=== PATIENT | male | born 1995 | race Caucasian/White ===

== ENCOUNTER 2020-03-17 00:36 | Emergency (ER) | payer OTHER, SELFPAY ==
[2020-03-17 00:47] VITALS: BP 107/77; PULSE 87; RESP 18; TEMP 36.7; O2SAT 99; BMI 26.6
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
--- NOTE | 2020-03-17 01:15 | XR_ITS ---
EXAMINATION: LEFT HAND 3 VIEWS CLINICAL INFORMATION: Left fourth and fifth digit pain. COMPARISON: None. TECHNIQUE: PA, lateral, oblique views of the left hand were obtained. FINDINGS: There are no fractures or dislocations. There is no significant soft tissue swelling. XR/XR hand LT min 3V IMPRESSION: Unremarkable left hand radiographs.
--- NOTE | 2020-03-17 01:19 | PC.NURSE ---
pt wound stapled, plan for right hand x ray then d.c
== END 2020-03-17 02:01 | disposition home or self-care (01) ==
PROVIDERS: Emergency Provider Emergency Medicine
DX: S01.01XA Laceration without foreign body of scalp, initial encounter (principal); S60.222A Contusion of left hand, initial encounter; M79.642 Pain in left hand; G44.309 Post-traumatic headache, unspecified, not intractable; Y04.2XXA Assault by strike against or bumped into by another person, initial encounter; Y93.9 Activity, unspecified; Y92.9 Unspecified place or not applicable; Y99.9 Unspecified external cause status
CPT/HCPCS: 12002; 73130; 99283; 99284

== ENCOUNTER 2020-03-28 18:02 | Emergency (ER) | payer OTHER, SELFPAY ==
[2020-03-28 18:16] VITALS: BP 133/75; PULSE 88; RESP 14; TEMP 36.6; O2SAT 99; BMI 23.3
--- NOTE | 2020-03-28 18:51 | ED_ITS ---
HPI - Wound/Laceration General Chief Complaint: Wound/Laceration Stated Complaint: Suture removal Time Seen by Provider: 03/28/20 18:31 Source: patient Mode of arrival: ambulatory History of Present Illness HPI narrative: 25-year-old male presenting to ED for staple removal from scalp s/p 12 christianne being placed on 03/17. Patient denies complaints since injury including drainage, fever, chills, headache, nausea/vomiting Onset (ago): day(s) Related Data Allergies Allergy/AdvReac Type Severity Reaction Status Date / Time No Known Allergies Allergy Verified 03/17/20 00:50 [No Known Allergies*] Review of Systems Review of Systems: Constitutional: No Weight loss, No Fever, No Chills ENT/Mouth: No Ear Pain, No Nasal Congestion, No Sinus Pain, No headache Gastrointestinal: No Nausea, No Vomiting Genitourinary:, No Dysuria, No Urinary Frequency, No Hematuria, No Urinary Incontinence Musculoskeletal: No joint pain, No Myalgias, No Joint Swelling Skin:+ Skin lac, No rash Neuro: No Weakness, No Numbness, No Paresthesias Yes all other systems are reviewed and are negative [facility] Past Medical History Attestation statement: The following information was validated with the patient. Source: old records reviewed Social History Social History Advance Directives: No Advance Directives Information Provided: Yes Physical Exam Vital Signs: Vital Signs: Last Vital Signs Temp 97.8 F 03/28/20 18:16 Pulse 88 03/28/20 18:16 Resp 14 03/28/20 18:16 BP 133/75 03/28/20 18:16 Pulse Ox 99 03/28/20 18:16 Body Mass Index 23.3 Const: General: cooperative and healthy appearing Orientation/consciousness: patient oriented x3 Limitations: no limitations HENMT: Head: Yes normal to inspection Ears: hearing grossly normal bilaterally General nose exam: Normal external nose present Face and sinus: Yes normal facial exam Eyes: General: appearance normal, both eyes and all related structures EOM: EOMs intact bilaterally Neck: Neck: Yes normal visual inspection Skin: Other: + healing laceration to with 12 christianne intact. No surrounding c ellulitis, no fluctuance or induration Neuro: General: patient oriented x3 Gait exam (Neuro): Normal gait present Extrem: General: Yes normal to inspection Procedures Procedure Narrative Procedure Narrative: Twelve chritsianne removed from back of scalp. No complications Discharge Plan Discharge Clinical Impression: Removal of staple Patient Disposition: Home, Self-Care Instructions: Staple Care (ED) Additional Instructions: Your christianne removed today in the ED You may apply bacitracin or Neosporin at home Do not excessively scribed area as it is still healing Keep an eye on it, if it begins to look infected, is red, there is drainage, you fever/headaches return to the ED Otherwise follow-up with her doctor Referrals: Physician,Unknown [Primary Care Provider] - 1 week
== END 2020-03-28 19:25 | disposition home or self-care (01) ==
PROVIDERS: Emergency Provider Emergency Medicine
DX: Z48.02 Encounter for removal of sutures (principal)
CPT/HCPCS: 99283

== ENCOUNTER 2020-04-03 20:50 | Emergency (ER) | payer OTHER, SELFPAY ==
[2020-04-03 21:15] VITALS: RESP 20
[2020-04-03 21:21] VITALS: RESP 20
[2020-04-03 21:23] VITALS: RESP 18
[2020-04-03 21:28] VITALS: RESP 18
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
[2020-04-03 22:08] VITALS: RESP 18
[2020-04-03] MEDS: HaloperidoL 5 MG TABLET PO (22:17)
[2020-04-03] MEDS: Acetaminophen 325 MG TABLET 650 MG PO (22:17)
[2020-04-03] MEDS: LORazepam 1 MG TABLET 2 MG PO (22:17)
--- NOTE | 2020-04-03 22:58 | PC.NURSE ---
Patient restrained released by provider, patient's needs to be changed, security are here for help, patient combative and resistive of change management specialist, refused to [facility], will continue to monitor.
--- NOTE | 2020-04-03 23:51 | MHC.CARE ---
CARE Team speaks with СЕРГЕЙ Greenberg. Pt physically restrained after arrival and was given Haldol and Ativan PO, pt now sleeping. Pt is not clinically appropriate to engage in assessment, and therefore will be seen by CARE Team i the morning.
[2020-04-04] VITALS (9 sets, daily range): BP systolic 110; BP diastolic 65; PULSE 58–95; RESP 16–24; TEMP 36.8; O2SAT 97
--- NOTE | 2020-04-04 00:05 | PC.NURSE ---
Patient in bed appears sleeping, no distress observed/reported, respiration +/=/non-labored bilaterally, will continue to monitor.
--- NOTE | 2020-04-04 03:21 | PC.NURSE ---
Patient in bed appears sleeping, no distress observed/reported, respiration +/=/non-labored bilaterally, will continue to monitor.
--- NOTE | 2020-04-04 07:23 | PC.NURSE ---
Report received from СЕРГЕЙ Greenberg. Pt resting, resp unlabored.
--- NOTE | 2020-04-04 09:49 | PC.NURSE ---
Pt resting, arousable w/ effort, opens eyes when called.
--- NOTE | 2020-04-04 11:41 | PC.NURSE ---
Pt accepted to go to ct- now returned.
[2020-04-04 12:05] LABS: MANUAL DIFF FLAG NO
[2020-04-04 12:06] LABS: Basophils Percent Auto 0.5 % (0-2); Eosinophils Absolute Auto 0.1 X10*3/uL (0.0-0.4); Eosinophils Percent Auto 1.2 % (0-4); Hematocrit 41.7 % (42-52); Hemoglobin 13.4 g/dl (14.0-18.0); Imm Gran Abs Auto 0.02 X10*3/uL (0.00-0.03); Imm Gran Pct Auto 0.3 % (0.0-0.4); Lymphocytes Absolute Auto 1.2 X10*3/uL (1.2-4.9); Lymphocytes Percent Auto 16.1 % (20-40); Mean Corpuscular HGB Conc 32.1 g/dl (31.0-36.0); Mean Corpuscular Volume 87.2 fL (80-98); Mean Platelet Volume 9.8 fL (9.4-12.4); Monocytes Absolute Auto 0.6 X10*3/uL (0.1-1.2); Neutrophils Absolute Auto 5.6 X10*3/uL (2.0-8.3); Neutrophils Percent Auto 73.9 % (45-73); Platelet Count 330 X10*3/uL (160-400); Red Blood Count 4.78 X10*6/uL (4.60-5.80); White Blood Count 7.6 X10*3/uL (4.8-10.8)
[2020-04-04 12:26] LABS: Ethanol < 10 mg/dL
[2020-04-04 12:37] LABS: Alanine Aminotransferase 13 U/L (0-40); Albumin Level 4.6 g/dL (3.5-5.0); Alkaline Phosphatase 79 U/L (39-117); Anion Gap 13 (12-20); Aspartate Amino Transferase 23 U/L (5-37); Bilirubin Total 0.8 mg/dL (0.0-1.0); Blood Urea Nitrogen 11 mg/dL (9-16); Calcium 9.3 mg/dL (8.4-10.2); Carbon Dioxide 29 mmol/L (22-29); Chloride 100 mmol/L (96-108); Estimated Glomerular Filt Rate > 60; Glucose Random 81 mg/dL (60-115); Potassium 4.5 mmol/l (3.3-5.1); Salicylate < 5.0 mg/dL (15-30); Sodium 137 mmol/L (135-145); Total Protein 7.5 g/dL (6.5-8.0)
[2020-04-04 12:39] LABS: Amphetamine Screen Urine Not Detected (Not Detect); Barbiturates, Urine Not Detected (Not Detect); Benzodiazepines Screen Urine Not Detected (Not Detect); Cannabinoid Screen Urine POSITIVE (Not Detect); Cocaine Screen Urine Not Detected (Not Detect); Opiate Screen Urine Not Detected (Not Detect); Phencyclidine Screen Urine Not Detected (Not Detect)
--- NOTE | 2020-04-04 12:45 | PC.NURSE ---
Late entry: Per care team, pt is to be assessed by N. Fax sent to [facility] w/ receipt received, but when N called, no fax had been received. Fax re-sent.
[2020-04-04 12:48] LABS: Acetaminophen LAB < 1 mcg/mL (<30)
--- NOTE | 2020-04-04 13:18 | PC.NURSE ---
Pt resting, resp unlabored.
--- NOTE | 2020-04-04 14:31 | PC.NURSE ---
BHN in to evaluate
--- NOTE | 2020-04-04 17:48 | PC.NURSE ---
Pt resting in room, awake, resp unlabored.
--- NOTE | 2020-04-04 18:10 | PC.NURSE ---
Pt declined to have vitals completed, also declined supper. Pt did not want nicotine patch. Pt currently resting in room.
--- NOTE | 2020-04-04 19:33 | PC.NURSE ---
Patient in bed appears sleeping, no distress observed/reported, respiration +/=/non-labored bilaterally, will continue to monitor.
[2020-04-05] VITALS (12 sets, daily range): BP systolic 110–126; BP diastolic 59–71; PULSE 52–90; RESP 16–24; TEMP 32.2–36.5; O2SAT 96–99
--- NOTE | 2020-04-05 01:34 | PC.NURSE ---
Patient in bed appears sleeping, no distress observed/reported, respiration +/=/non-labored bilaterally, will continue to monitor.
--- NOTE | 2020-04-05 03:52 | PC.NURSE ---
Patient in bed appears sleeping, repositioning periodically, no distress observed/reported, respiration +/=/non-labored bilaterally, will continue to monitor.
--- NOTE | 2020-04-05 06:30 | PC.NURSE ---
Patient calm, cooperative and pleasant with staff member, requested/offered drinks, vital signs WNL, denied distress, will continue to monitor.
--- NOTE | 2020-04-05 07:13 | PC.NURSE ---
Report received from Dionicio RUSHING. Pt resting, resp unlabored.
--- NOTE | 2020-04-05 11:22 | PC.NURSE ---
Pt awakened for vitals. Pt irritable on awakening- accepted vitals but declined Covid testing stating that if he was kept here much longer he would 'flip the f... out.' Pt stated that he would continue to decline any further testing.
--- NOTE | 2020-04-05 12:18 | PC.NURSE ---
Pt resting, resp unlabored.
--- NOTE | 2020-04-05 14:35 | PC.NURSE ---
Pt evaluated by MARQUES
[2020-04-05] MEDS: Haloperidol Lactate 5 MG/ML VIAL IM (16:26)
[2020-04-05] MEDS: LORazepam 2 MG/ML VIAL IM (16:27)
--- NOTE | 2020-04-05 16:48 | PC.NURSE ---
Late entry ~1615: Pt threw lunch across the room after BHN spoke with him. Attempted to de-escalate w/ security present. Pt very angry that he feels no one has tried to contact his grandmother, states grandmother would take him. Pt angry at family, states 'they wont fruit or nut picker...they wont take me out of here.' Pt declining Covid testing again, swearing at staff. Pt then rested for a few minutes, then began to tear up sheet. Pt offered po medications, pt declined, continuing to swear, tear sheets, threatening to break the window. Pt given Haldol/Ativan as ordered. Shortly after, pt asked ' what is that covid thing all about anyway?' Testing explained, pt accepted test. Pt currently resting. Allowed one full set of vitals, declined subsequent BP check.
[2020-04-05 17:26] LABS: COVID-19 Test Negative (Negative); IDNOW Serial# 9DD0AD1C
--- NOTE | 2020-04-05 19:02 | PC.NURSE ---
Patient currently in bed appears sleeping, no distress observed/reported, respiration +/=/non-labored bilaterally, patient s/p chemical restraint, will continue to monitor.
[2020-04-06 06:36] VITALS: RESP 16
[2020-04-06 09:20] VITALS: RESP 18
--- NOTE | 2020-04-06 11:33 | PC.NURSE ---
Patient's sister Salina phone number: [phone] (this number was confirmed by [facility]-number on file for contacts does not work)
--- NOTE | 2020-04-06 13:40 | PC.NURSE ---
Patient in room standing on bed, patient asked to sit down by [facility], this nurse and security. Patient refusing to sit down, flipped mattress off of bed and ripped sheet, stating I'm fucking bored in here. I want to get the fuck out, staring at these fucking four shaw, this place is fucking boring . Patient asked again to sit down by security. Patient in corner of room yelling I'm not getting no fucking shot. I'll take pills . This nurse asked patient if he would be willing to take medication by mouth to help calm him down, he agreed. This nurse administered PO medications for patient's anxiety and agitation per provider order. see MAR.
[2020-04-06] MEDS: HaloperidoL 5 MG TABLET PO (13:45)
[2020-04-06] MEDS: diphenhydrAMINE HCL 25 MG TABLET PO (13:45)
[2020-04-06] MEDS: LORazepam 1 MG TABLET 2 MG PO (13:46)
--- NOTE | 2020-04-06 14:15 | PC.NURSE ---
Patient provided with toiletries for showering. [employer] tech outside bathroom for watch/safety. Patient in room now resting queitly, in no acute distress at this time.
--- NOTE | 2020-04-06 15:33 | PC.NURSE ---
Report received, pt currently resting in bed, calm, no complaints at this time.
[2020-04-06 16:06] VITALS: BP 115/62; PULSE 70; RESP 14; TEMP 36.9; O2SAT 98
--- NOTE | 2020-04-06 17:35 | PC.NURSE ---
Pt sleeping in bed at current. No signs of distress. Respirations even and non-labored
--- NOTE | 2020-04-06 19:06 | PC.NURSE ---
Report received. PT is sleeping in bed. Breathing is even and unlabored. Inpatient bed search in progress.
[2020-04-06 20:17] VITALS: BP 114/69; PULSE 75; RESP 20; TEMP 37.1; O2SAT 98
--- NOTE | 2020-04-07 06:58 | PC.NURSE ---
Report received. Pt currently sleeping, respirations even and unlabored, in no apparent distress. pt is inpatient bedsearch.
[2020-04-07 07:00] VITALS: BP 119/74; PULSE 77; RESP 18; TEMP 36.7; O2SAT 98
[2020-04-07 09:29] VITALS: BP 122/72; PULSE 103; RESP 18; TEMP 37.1; O2SAT 95
[2020-04-07] MEDS: LORazepam 1 MG TABLET 2 MG PO (12:15)
[2020-04-07] MEDS: diphenhydrAMINE HCL 25 MG TABLET PO (12:15)
[2020-04-07] MEDS: HaloperidoL 5 MG TABLET PO (12:16)
--- NOTE | 2020-04-07 12:18 | PC.NURSE ---
PT standing on bed, yelling at staff, stating fuck this i'm going to do what I want until you fucking discharge me PT redirected, pt threatening staff, stating give me meds and i'll slap the shit out of you . Security on unit, verbal redirection effective with security, PT accepted medicaiton.
[2020-04-07 16:22] VITALS: RESP 16
--- NOTE | 2020-04-07 19:01 | PC.NURSE ---
Report received. PT is sleeping in bed. Breathing is even and unlabored. Inpatient bed search in progress.
[2020-04-08] VITALS: RESP 18
--- NOTE | 2020-04-08 03:54 | PC.NURSE ---
PT woke up and started yelling that he wanted to go home. PT standing on the bed to look out the window. PT able to be redirected and calm down enough to lay down in bed.
--- NOTE | 2020-04-08 07:35 | PC.NURSE ---
Report received from СЕРГЕЙ Padron. Pt awake, angry, reacting to another patient's agitation. Pt demanding to go home.
--- NOTE | 2020-04-08 09:18 | PC.NURSE ---
Report given to СЕРГЕЙ Robb, at [facility]. Requesting additional information to be faxed.
--- NOTE | 2020-04-08 10:01 | PC.NURSE ---
Pt resting in room, restless. Awaiting call from [facility]: bed availability.
[2020-04-08 10:20] VITALS: BP 115/76; PULSE 88; TEMP 37.2; O2SAT 97
--- NOTE | 2020-04-08 11:17 | PC.NURSE ---
Spoke w/ Cezar at [facility] to confirm receipt of fax. Per Cezar, hospital will be accepting Nicko later today. No further rn to rn report required per Cezar.
--- NOTE | 2020-04-08 11:33 | PC.NURSE ---
Pt restless, resting in room.
--- NOTE | 2020-04-08 11:43 | PC.NURSE ---
Pt awake, angry, demanding to go home, to be with his mother. Pt notified that he has been accepted by [facility]- pt angry that the hospital is far away.
--- NOTE | 2020-04-08 11:44 | PC.NURSE ---
pt making call to home.
--- NOTE | 2020-04-08 12:15 | PC.NURSE ---
Pt agitated, jumping up on desk, threw his matress to floor. Security called.
--- NOTE | 2020-04-08 12:39 | PC.NURSE ---
Pt agitated, jumping on furniture, ripping sheets. Angry that he is going to be going to another hospital. unable at this time to de-escalate.
[2020-04-08] MEDS: LORazepam 1 MG TABLET 2 MG PO (12:45)
--- NOTE | 2020-04-08 12:48 | PC.NURSE ---
Pt accepted medications voluntarily, PO. EMS due to arrive in 1/2 hour. Pt now sitting on bed, eating lunch. Appears less agitated.
--- NOTE | 2020-04-08 12:54 | PC.NURSE ---
C Nik aware that pt accepted Haldol/Ativan PO.
== END 2020-04-08 13:21 ==
PROVIDERS: Nurse Practitioner Family; Emergency Provider Emergency Medicine
DX: F20.9 Schizophrenia, unspecified (principal); F29 Unspecified psychosis not due to a substance or known physiological condition; R45.851 Suicidal ideations; R45.850 Homicidal ideations; Z20.828 Contact with and (suspected) exposure to other viral communicable diseases; Z79.899 Other long term (current) drug therapy
CPT/HCPCS: 36415; 70450; 80053; 80307; 80320; 85025; 87635; 96372; 99285; G0480; J2060; Q0163

== ENCOUNTER 2020-10-30 19:37 | Emergency (ER) | payer OTHER, SELFPAY ==
[2020-10-30 19:43] VITALS: BP 130/63; PULSE 107; RESP 18; TEMP 36.9; O2SAT 97; BMI 28.1
== END 2020-10-30 22:25 | disposition left against medical advice (07) ==
PROVIDERS: Emergency Provider Emergency Medicine
DX: R05 Cough (principal)
CPT/HCPCS: 99281; 99282